=== PATIENT | male | born 1965 | race Caucasian/White ===

== ENCOUNTER → 2019-03-04 | Outpatient (CLI) | payer OTHER ==
[~2019-03-04] MED LIST: NOHOMEMEDICATIONS; POLYMYXIN B/TMP10 ML OP
== END ==
LOC: M.CT 13:47
DX: Z13.6 Encounter for screening for cardiovascular disorders (principal)

== ENCOUNTER → 2019-04-08 | Day surgery (SDC) | payer BC ==
[~2019-04-08] MED LIST changes: +IBU800 MG PO; +NORCO 5-325 TA1 EAC1 PO
--- NOTE | 2019-04-08 08:40 | H ---
[place] [address] HISTORY AND PHYSICAL Name: RAJ MAGAÑA Room: [facility].#: [id number] Admission: Attend Phys: Sayra Gunter MD Discharge: Date of : 61 Report #: [id number] THIS REPORT FOR: //name// CC: Martin Gunter DATE OF SERVICE: 04/08/2019 The patient is to be treated on 04/08/2019. ADMITTING DIAGNOSIS: Left clavicular mass. HISTORY OF PRESENT ILLNESS: The patient is a 53-year-old male, who presents with an enlarging painful left clavicle mass and was consulted for surgical extraction. PAST MEDICAL HISTORY: Hypercholesterolemia. REVIEW OF SYSTEMS: Otherwise, unremarkable. SOCIAL HISTORY: He does not smoke or use tobacco. He does not use alcohol. FAMILY HISTORY: Noted for hypertension, dementia, and breast cancer. PHYSICAL EXAMINATION: GENERAL: He is a well-developed, well-nourished male, sitting up in no acute distress. HEAD, EARS, EYES, NOSE AND THROAT: Unremarkable. NECK: Supple. LUNGS: Clear. SKIN: On the left chest and medial clavicular area, there is a 4-cm raised soft tissue mass. ABDOMEN: Soft with normal bowel sounds. NECK: Normal size. NEUROLOGIC: He is oriented to person, place and time. IMPRESSION: A 53-year-old gentleman with an enlarging sebaceous cyst requesting surgical excision due to pain. PLAN: I have outlined the surgical excision, its risks and benefits, answered his questions. He understands and wishes to proceed. <ELECTRONICALLY SIGNED> By: Sayra Gunter MD 04/08/19 0840 1454 [id number] Gunter MD /nt
[2019-04-08 10:18] LABS: HEMATOCRIT 47.7 % (42.0-52.0); HEMOGLOBIN 16.5 gm/dL (14.0-18.0); MCH 31.1 pg (26.0-34.0); MCHC 34.6 g/dL (28.0-37.0); MCV 90.1 fL (80.0-100.0); MPV 6.9 fl. (7.2-11.1); RBC 5.3 mil/uL (4.50-6.00); RDW-CV 13.7 % (10.5-14.5); WBC 8.8 thou/uL (4.0-11.0)
[2019-04-08 10:28] LABS: CALCIUM 9.5 mg/dL (8.5-10.1); POTASSIUM 4.1 mmol/L (3.5-5.1)
[2019-04-08 10:33] LABS: ALBUMIN 4.1 g/dL (3.4-5.0); TOTAL BILIRUBIN 0.6 mg/dL (<0.1-1.0); TOTAL PROTEIN 7.6 g/dL (6.4-8.2)
--- NOTE | 2019-04-10 17:06 | PATH ---
[facility] [address] [place] [address] PATHOLOGY RPT PROCEDURE Name: ARCHANARAJ TOWNSNED Room: [facility].R.#: [id number] Admission: 04/08/19 Date of : 61 Discharge: Report #: [id number] Path Case #: [id number] [facility] Accession Number: [id number] . 01 Material submitted: . clavicle - LIPOMA, LEFT CLAVICLE. Modifiers: left . 01 Clinical history: . Preop DX: CEBACOUS CYST Postop DX: MASS LEFT SUB CLAVICAL . 02 Diagnosis: Lipoma left clavicle: - Lipoma and attached benign skeletal muscle. (ABIODUN:cate; 04/10/2019) QMS 04/10/2019 1525 Local . 02 Electronically signed: . Indra Farrar MD, Pathologist NPI- [id number] . 01 Gross description: . The specimen is received in formalin labeled "Raj Rapp, Lipoma, Left Clavical". The postoperative diagnosis is listed on the requisition as "mass left sub clavical". Received is an ovoid, partially encapsulated segment of yellow lobulated adipose tissue with scant attached aguilar-chan fibromembranous tissue measuring 3.2 x 2.5 x 2.3 cm in greatest dimensions. The specimen is inked black and serially sectioned to reveal homogenous pale yellow cut surfaces. Accounts Payable [employer]st sections are submitted in cassette A1. (DAC; 04/09/2019) XDC/XDC 04/09/2019 0736 Local . 02 Pathologist provided ICD-10: D17.79 . 02 CPT . 936882 Specimen Comment: A courtesy copy of this report has been sent to Specimen Comment: [phone], . Specimen Comment: Report sent to / DR REED Performed at: [address] [id number] MD Khanh Berg MD Phone: [phone] Performed at: 02 [facility] [address] [place], [place] [id number] [address] [address] PATHOLOGY RPT PROCEDURE Name: RAJ RAPP Room: [facility]#: [id number] Admission: 04/08/19 Date of : 61 Discharge: Report #: [id number] Path Case #: [id number] MD Indra Farrar MD Phone: [phone]
--- NOTE | 2019-04-15 12:19 | OP ---
[address] [address] OPERATIVE REPORT Name: ANTONHENRIKZunildaRAJ TOWNSEND Room: [facility].#: [id number] Admission: 04/08/19 Attend Phys: Sayra Gunter MD Discharge: Date of : 61 Report #: [id number] THIS REPORT FOR: //name// CC: Martin Gunter DATE OF SERVICE: 04/08/2019 PREOPERATIVE DIAGNOSIS: Left subclavicular mass. POSTOPERATIVE DIAGNOSIS: Left subclavicular lipoma. OPERATIVE PROCEDURE: Excision of lipoma. ANESTHESIA: Laryngeal mask with 0.5% Marcaine with epinephrine infiltrated into the wound site. DESCRIPTION OF PROCEDURE: The patient was placed under laryngeal mask anesthesia and the patient's left clavicular neck area were prepped and draped in a sterile fashion. A timeout was taken. IV antibiotics were administered. We began infiltrating around the palpable mass and made a transverse incision of approximately 4 cm across this mass. Dissection with cautery and then blunt dissection with a hemostat noted that this was not a sebaceous cyst, but it tunneled underneath the musculature of the patient's anterior chest wall and neck when I split those muscle fibers aside, a fatty tumor was encountered and carefully dissected out with blunt and sharp dissection until it was completely shelled out and sent as a specimen. Inspection of the wound bed was noted for any ongoing bleeding. I injected a deeper layer of local anesthetic and then reapproximated fascial tissues above the chest wall and neck with interrupted 3-0 Vicryl sutures and then the epidermis was closed with a running 4-0 PDS suture and sealed with Dermabond. Estimated blood loss 1 mL. Sponge and instrument counts correct. Specimen to pathology. The patient was taken laryngeal mask and returned to recovery in stable condition. <ELECTRONICALLY SIGNED> By: Sayra Gunter MD 04/15/19 1219 1227 1236Sayra Gunter MD /nt
== END | disposition home or self-care (01) ==
LOC: M.SUR 07:33
PROVIDERS: Surgery
DX: D17.79 Benign lipomatous neoplasm of other sites (principal); I10 Essential (primary) hypertension; E78.00 Pure hypercholesterolemia, unspecified; F03.90 Unspecified dementia, unspecified severity, without behavioral disturbance, psychotic disturbance, mood disturbance, and anxiety; Z98.890 Other specified postprocedural states; Z79.899 Other long term (current) drug therapy; Z85.3 Personal history of malignant neoplasm of breast

== ENCOUNTER → 2020-11-03 | Outpatient (CLI) | payer BC | LOC: M.ULTRA 07:19 | PROVIDERS: ATTEND Internal Medicine | DX: N50.3 Cyst of epididymis (principal); N43.3 Hydrocele, unspecified; I86.1 Scrotal varices ==